=== PATIENT | female | born 1995 ===

== ENCOUNTER 2017-04-29 18:54 | Emergency (ER) | payer BC ==
[2017-04-29 19:06] VITALS: BMI 19.5
[2017-04-29] MEDS ORDERED: Sodium Chloride 0.9% 1,000 ML IV STA (19:56)
[2017-04-29] MEDS ORDERED: Sodium Chloride 0.9% 500 ML IV SCH (20:00)
[2017-04-29 20:07] LABS: URINE BILIRUBIN SMALL (NEGATIVE); URINE BLOOD SMALL (NEGATIVE); URINE GLUCOSE (UA) NEGATIVE (NEGATIVE); URINE KETONE TRACE mg/dL (NEGATIVE); URINE LEUKOCYTE ESTERASE NEGATIVE Leu/uL (NEGATIVE); URINE PROTEIN NEGATIVE mg/dL (<30 mg/dL)
--- NOTE | 2017-04-29 20:08 | ED PDOC ---
Arrival/HPI - General Historian: Patient, Parent EM Caveat: Acuity of Condition - History of Present Illness Front/Back of Body, Lg (Color): 1 - umbilical pain 2 - radiating to the back Time/Duration: Prior to Arrival, 1 hour Symptom Onset: Sudden Symptom Course: Intermittent Quality: Stabbing Severity Level: 10 Activities at Onset: Light Context: Standing <ALEXUS CASTELAN - Last Filed: 04/29/17 22:34> <Gerson Mcgowan - Last Filed: 04/29/17 22:43> - General Chief Complaint: Abdominal Pain Time Seen by Provider: 04/29/17 18:58 - History of Present Illness Narrative History of Present Illness (Text): 21 years old female with no significant PMh, presents for abdominal pain x 1 hr prior to arrival. Pt states that the pain is located around the umbilicus, started suddenly, describes it as sharp, stabbing, intermittent, rates it as 10/ 10, occurs every 15-20 mins, lasting a minute at a time. Pt has associated nausea, 1 episode of NB,nb vomit. Pt took 200 mg advil with minimal relief. Pt denies any fever, chills, dysuria, hematuria, frequency, diarrhea, melena, malodorous vaginal discharge, BRBPR. Pt has a history of constipation throughout life, mostly has a BM 3x/week, last BM this AM, nonbloody. Pt states that she is recently recovering from a common cold since this saturday, pt had sore throat, mild cough, nasal congestion, postnasal drip. Pt is taking otc theraflu for the symptoms, with good relief. PMD: Dr Sampson Dewitt [facility]: Mom and grandmother, kidney stones LMP: 04/27/17 04/29/17 19:57 (ALEXUS CASTELAN) Associated Symptoms (Text): + nausea and vomiting 04/29/17 20:09 (ALEXUS CASTELAN) Past Medical History - Provider Review Nursing Documentation Reviewed: Yes - Infectious Disease Hx of Infectious Diseases: None - Psychiatric Hx Substance Use: No - Anesthesia Hx Anesthesia: No <ALEXUS CASTELAN - Last Filed: 04/29/17 22:34> Family/Social History - Physician Review Nursing Documentation Reviewed: Yes Family/Social History: Other (Mother and grandmom, Kidney stones) Smoking Status: Never Smoked Hx Alcohol Use: No Hx Substance Use: No <ALEXUS CASTELAN - Last Filed: 04/29/17 22:34> Allergies/Home Meds <ALEXUS CASTELAN - Last Filed: 04/29/17 22:34> <Gerson Mcgowan - Last Filed: 04/29/17 22:43> Allergies/Adverse Reactions: Allergies No Known Allergies Allergy (Verified 04/29/17 19:05) Home Medications: Home Meds Medication Instructions Recorded Confirmed Norgestimate-Ethinyl Estradiol 1 tab PO DAILY 04/29/17 04/29/17 [Tri-Estarylla Tablet] Review of Systems - Physician Review All systems were reviewed & negative as marked: Yes - Review of Systems Constitutional: absent: Fevers Eyes: absent: Vision Changes, Eye Pain Respiratory: Cough, Sputum. absent: SOB, Wheezing Cardiovascular: absent: Chest Pain, Palpitations, Syncope Gastrointestinal: Abdominal Pain, Constipation, Nausea, Vomiting. absent: Stool Changes, Diarrhea Musculoskeletal: Back Pain. absent: Joint Swelling Skin: absent: Rash Neurological: absent: Headache, Dizziness Psychiatric: Anxiety <ALEXUS CASTELAN - Last Filed: 04/29/17 22:34> Physical Exam Vital Signs Reviewed: Yes Temperature: Afebrile Blood Pressure: Normal Pulse: Regular Respiratory Rate: Normal Appearance: Positive for: Uncomfortable Pain Distress: Mild Mental Status: Positive for: Alert and Oriented X 3 - Systems Exam Head: Present: Atraumatic, Normocephalic Pupils: Present: PERRL Extroacular Muscles: Present: EOMI Conjunctiva: Present: Normal Mouth: Present: Moist Mucous Membranes Pharnyx: Present: ERYTHEMA. No: Peritonsilar Swelling Respiratory/Chest: Present: Clear to Auscultation, Good Air Exchange. No: Accessory Muscle Use Cardiovascular: Present: Regular Rate and Rhythm, Normal S1, S2 Abdomen: Present: Tenderness, Normal Bowel Sounds, Guarding, McBurney's Point Tender. No: Peritoneal Signs, Rebound, Rovsing's Sign Present Genitourinary/Pelvic Exam: Present: Adenexal Tenderness (Right ), Cervical Motion Tendernes (Mild) Back: Present: Normal Inspection. No: CVA Tenderness Upper Extremity: Present: Normal Inspection. No: Edema Lower Extremity: Present: Normal Inspection, NORMAL PULSES. No: CALF TENDERNESS Neurological: Present: Speech Normal, Gait Normal Skin: Present: Warm, Dry. No: Rashes Psychiatric: Present: Alert, Oriented x 3, Anxious <ALEXUS CASTELAN - Last Filed: 04/29/17 22:34> Vital Signs Temp Pulse Resp BP Pulse Ox 04/29/17 19:07 97.7 F 95 H 18 107/75 100 Medical Decision Making <ALEXUS CASTELAN - Last Filed: 04/29/17 22:34> <Gerson Mcgowan - Last Filed: 04/29/17 22:43> ED Course and Treatment: 21 years old female presents for acute onset of abdominal pain: - Differentials include: appendicitis vs nephrolithiasis vs gastroenteritis vs colitis vs diverticulitis vs ovarian etiology vs ectopic vs UTI vs menstruation related pain - Obtain UA, test, CBC, CMP, lipase - CT abd/pelvis w/o contrast - Give Pepcid, zofran, toradol, IVF - F/u results. Reassess 04/29/17 20:15 04/29/17 20:18 test negative. will proceed with CT. 04/29/17 22:31 Ct abd/pelvis shows right sided free fluid within the pelvis. Pelvic exam done at bedside shows mild cervical motion tenderness and right sided adnexal tenderness. Will proceed with transvaginal US to better visualize the ovaries. (ALEXUS CASTELAN) 04/29/17 22:37 Patient was seen and examined with resident and plan discussed. Blood work was unremarkable. Urine showing blood but on menses. Has a family history of renal stones. CT a/p showing no stones but free fluid in the pelvis. Bimanual exam done (with Resident Alexus Castelan as [employer]) with R adnexal tenderness and mild CMT - findings are consistent with probably ruptured ovarian cyst but will also need to r/o ovarian torsion. Patient feels significantly better after initial meds but still in some pain; will give ultracet. Patient will be endorsed to Dr. Conrad, who will follow sono results. If no sono and findings are more consistent with a ruptured ovarian cyst, she will be d.c on nsaid and follow up with Dr. 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 (Gerson Mcgowan) - Lab Interpretations Lab Results: 04/29/17 20:00 04/29/17 20:00 Lab Results 04/29/17 20:00: Sodium 143, Potassium 3.9, Chloride 108 H, Carbon Dioxide 26, Anion Gap 13, BUN 13, Creatinine 0.6 L, Est GFR ( Amer) > 60, Est GFR ( Non-Af Amer) > 60, Random Glucose 109, Calcium 9.1, Total Bilirubin 0.4, AST 24 , ALT 28, Alkaline Phosphatase 56, Total Protein 6.9, Albumin 4.0, Globulin 2.9 , Albumin/Globulin Ratio 1.4, Lipase 57 04/29/17 20:00: WBC 8.3, RBC 3.93, Hgb 10.8 L, Hct 30.7 L, MCV 78.1 L, MCH 27.5 , MCHC 35.2, RDW 15.8 H, Plt Count 298, MPV 9.1, Gran % 76.1 H, Lymph % (Auto) 16.5 L, [place] % (Auto) 6.4 H, Eos % (Auto) 0.8 L, Baso % (Auto) 0.2, Gran # 6.29 , Lymph # 1.4, [place] # 0.5, Eos # 0.1, Baso # 0.02 04/29/17 19:45: Urine Color Yellow, Urine Appearance Sl cloudy, Urine pH 6.0, Ur Specific [place] 1.025, Urine Protein Negative, Urine Glucose (UA) Negative, Urine Ketones Trace H, Urine Blood Small H, Urine Nitrate Negative, Urine Bilirubin Small H, Urine Urobilinogen 1.0 H, Ur Leukocyte Esterase Negative, Urine RBC 20 - 25, Urine WBC 1 - 3, Ur Epithelial Cells 0 - 2, Urine Bacteria Mod - RAD Interpretation Narrative RAD Interpretations (Text): 04/29/17 22:24 Ct abd/pelvis: No obstructive uropathy. Free fluid within the right lower quadrant, within the right hemipelvis without definitive visualization of the appendix. Given the lack of intravenous contrast, examination is limited. Pelvic ultrasound may yield additional information, as well as providing source for the visualized free fluid. (ALEXUS CASTELAN) Radiology Orders: 04/29/17 19:49 ABD & PELVIS W/O PO OR IV CONT [CT] Stat 04/29/17 22:20 TRANSVAGINAL [US] Stat - Medication Orders Current Medication Orders: Discontinued Medications Famotidine (Pepcid) 20 mg IVP STAT STA Stop: 04/29/17 19:57 Last Admin: 04/29/17 20:03 Dose: 20 mg IVP Administration Document 04/29/17 20:03 SE (Rec: 04/29/17 20:03 SE [id number]) Charges for Administration # of IVP Administrations 1 Sodium Chloride (Sodium Chloride 0.9%) 1,000 mls @ 999 mls/hr IV .Q1H1M STA Stop: 04/29/17 20:56 Last Admin: 04/29/17 20:03 Dose: 999 mls/hr eMAR Start Stop Document 04/29/17 20:03 SE (Rec: 04/29/17 20:03 SE [id number]) Intravenous Solution Start Date 04/29/17 Start Time 20:03 Ketorolac Tromethamine (Toradol) 30 mg IVP STAT STA Stop: 04/29/17 19:58 Last Admin: 04/29/17 20:03 Dose: 30 mg MAR Pain Assessment Document 04/29/17 20:03 SE (Rec: 04/29/17 20:03 SE [id number]) Pain Reassessment Is this a pain reassessment? No Sleep Is patient sleeping during reassessment? No Presence of Pain Presence of Pain Yes Pain Scale Used Pain Scale Used Numeric IVP Administration Document 04/29/17 20:03 SE (Rec: 04/29/17 20:03 SE [id number]) Charges for Administration # of IVP Administrations 1 Ondansetron HCl (Zofran Inj) 4 mg IVP STAT STA Stop: 04/29/17 19:57 Last Admin: 04/29/17 20:03 Dose: 4 mg IVP Administration Document 04/29/17 20:03 SE (Rec: 04/29/17 20:03 SE [id number]) Charges for Administration # of IVP Administrations 1 - PA / CERTIFIED MEDICAL CODER / Resident Statement / has reviewed & agrees with the documentation as recorded. / has examined the patient and agrees with the treatment plan. <Gerson Mcgowan - Last Filed: 04/29/17 22:43> Disposition/Present on Arrival - Present on Arrival Any Indicators Present on Arrival: No History of DVT/PE: No History of Uncontrolled Diabetes: No Urinary Catheter: No History of Decub. Ulcer: No History Surgical Site Infection Following: None - Disposition Have Diagnosis and Disposition been Completed?: No Disposition Time: 23:00 <ALEXUS CASTELAN - Last Filed: 04/29/17 22:34> <Gerson Mcgowan - Last Filed: 04/29/17 22:43> - Disposition Diagnosis: Abdominal pain Patient Problems: Current Active Problems Problem Status Onset Abdominal pain Acute Condition: IMPROVED Discharge Instructions (ExitCare): Ovarian Cyst (ED) Referrals: Sampson Dewitt MD [Primary Care Provider] - Follow up with primary Satinder Schroeder MD [Staff Provider] - Follow up with primary Forms: [facility] (Latvian)
[2017-04-29 20:17] LABS: ALB/GLOB RATIO 1.4 (1.1-1.8); ALKALINE PHOSPHATASE 56 U/L (38-126); ALT/SGPT 28 U/L (7-56); AST/SGOT 24 U/L (14-36); BILIRUBIN,TOTAL 0.4 mg/dL (0.2-1.3); BLOOD UREA NITROGEN 13 mg/dL (7-21); CALCIUM 9.1 mg/dL (8.4-10.5); CARBON DIOXIDE 26 mmol/L (21-33); CHLORIDE 108 mmol/L (98-107); GFR AFRICAN-AMERICAN > 60; GLUCOSE,RANDOM 109 mg/dL (70-110); LIPASE 57 U/L (23-300); POTASSIUM 3.9 mmol/L (3.6-5.0); SODIUM 143 mmol/L (132-148); TOTAL PROTEIN 6.9 g/dL (5.8-8.3)
[2017-04-29 20:23] LABS: BASO # 0.02 K/mm3 (0.0-2.0); BASO % 0.2 % (0.0-3.0); EOS # 0.1 (0.0-0.7); EOS % 0.8 % (1.5-5.0); GRAN # 6.29 (1.4-6.5); GRAN % 76.1 % (50.0-68.0); HEMATOCRIT 30.7 % (36.0-48.0); LYMPH # 1.4 (1.2-3.4); LYMPH % 16.5 % (22.0-35.0); MEAN CELL VOLUME 78.1 fl (80.0-105.0); MEAN CORPUSCULAR HEMOGLOBIN 27.5 pg (25.0-35.0); MEAN CORPUSCULAR HGB CONC 35.2 g/dl (31.0-37.0); MEAN PLATELET VOLUME 9.1 fl (7.0-11.0); MONO # 0.5 (0.1-0.6); MONO % 6.4 % (1.0-6.0); RED CELL DISTRIBUTION WIDTH 15.8 % (11.5-14.5); WHITE BLOOD COUNT 8.3 10^3/ul (4.5-11.0)
[2017-04-29 20:29] LABS: URINE APPEARANCE SL CLOUDY (CLEAR); URINE COLOR YELLOW (YELLOW)
[2017-04-29 20:49] LABS: URINE BACTERIA MOD (NEG); URINE EPITHELIAL CELLS 0 - 2 /hpf (0-5); URINE RBC 20 - 25 /hpf (0-2)
--- NOTE | 2017-04-29 22:12 | CT ---
EXAM: CT Abdomen and Pelvis Without Intravenous Contrast CLINICAL HISTORY: 21 years old, female; Pain; Abdominal pain; Flank; Right; Additional info: Abdominal/flank pain; R/O appendicitis, renal sto TECHNIQUE: Axial computed tomography images of the abdomen and pelvis without intravenous contrast. All CT scans at this facility use one or more dose reduction techniques, viz.: automated exposure control; ma/kV adjustment per patient size (including targeted exams where dose is matched to indication; i.e. head); or iterative reconstruction technique. Coronal and sagittal reformatted images were created and reviewed. COMPARISON: No relevant prior studies available. FINDINGS: Lower thorax: The bilateral lung bases are clear. ABDOMEN: Liver: No acute findings Gallbladder and bile ducts: No acute finding. No calcified stones. No intra-extrahepatic biliary ductal dilation. Pancreas: Limited evaluation secondary to the lack of intravenous contrast. Spleen: No acute findings. Adrenals: No acute findings. Kidneys and ureters: No obstructing stones. No hydronephrosis. PELVIS: Bladder: The bladder is decompressed, limiting its evaluation. Reproductive: The uterus is anteverted and anteflexed, and extends to the right of midline. The patient is currently menstruating. Appendix: The appendix is not definitively visualized, however no significant pericecal inflammatory change is identified to suggest the presence of acute appendicitis. There is, however, free fluid within the right lower quadrant, within the right hemipelvis. ABDOMEN and PELVIS: Stomach and bowel: No acute findings. Peritoneum: As above. Lymph nodes: Limited evaluation without intravenous contrast. Vasculature: Unremarkable. Bones: No acute fracture. IMPRESSION: No obstructive uropathy. Free fluid within the right lower quadrant, within the right hemipelvis without definitive visualization of the appendix. Given the lack of intravenous contrast, examination is limited. Pelvic ultrasound may yield additional information, as well as providing source for the visualized free fluid.
[2017-04-29] MEDS ORDERED: TraMADol/Apap 37.5/325 mg Tab PO STA (22:36)
--- NOTE | 2017-04-29 22:48 | ED PDOC ---
Physical Exam Vital Signs Reviewed: Yes Vital Signs Temp Pulse Resp BP Pulse Ox 04/29/17 23:30 98.3 F 87 16 122/63 99 04/29/17 19:07 97.7 F 95 H 18 107/75 100 Temperature: Afebrile Blood Pressure: Normal Pulse: Regular Respiratory Rate: Normal Appearance: Positive for: Well-Appearing, Non-Toxic, Comfortable Pain Distress: None Mental Status: Positive for: Alert and Oriented X 3 Medical Decision Making ED Course and Treatment: 04/29/17 22:45 Case endorsed to me by Dr. Mcgowan. 21 year old female presented complaining of abdominal pain. Blood work unremarkable, CT showing free fluids in the pelvis. Pt awaiting US, r/o ovarian torsion, diagnosis at this time likely ruptured ovarian cyst. Pt felt better with Toradol, but still reports some pain. Will await sono results and re-assess. 04/29/17 23:29 Pt states she does not want to wait for the ultrasound and wants to go home. Pt will sign out against medical advice. Leaving Against Medical Advice (AMA): The patient is choosing to leave against medical advice. I have personally explained to the patient that choosing to do so may result in permanent bodily harm or . I have discussed at great length that without further evaluation and monitoring there may be unforeseen circumstances and/or deterioration causing permanent bodily harm or as a result of their choice. The patient is alert, oriented, and shows the mental capacity to make clear decisions regarding the patients health care at this time. The patient continues to wish to leave against medical advice. In light of the patients decision to leave against medical advice, patient is aware of the importance to following up as instructed. The patient has been advised that they should return to the emergency room immediately if they change their mind at any time, or if their condition begins to change or worsen in any way. - Lab Interpretations Lab Results: 04/29/17 20:00 04/29/17 20:00 Lab Results 04/29/17 20:00: Sodium 143, Potassium 3.9, Chloride 108 H, Carbon Dioxide 26, Anion Gap 13, BUN 13, Creatinine 0.6 L, Est GFR ( Amer) > 60, Est GFR ( Non-Af Amer) > 60, Random Glucose 109, Calcium 9.1, Total Bilirubin 0.4, AST 24 , ALT 28, Alkaline Phosphatase 56, Total Protein 6.9, Albumin 4.0, Globulin 2.9 , Albumin/Globulin Ratio 1.4, Lipase 57 04/29/17 20:00: WBC 8.3, RBC 3.93, Hgb 10.8 L, Hct 30.7 L, MCV 78.1 L, MCH 27.5 , MCHC 35.2, RDW 15.8 H, Plt Count 298, MPV 9.1, Gran % 76.1 H, Lymph % (Auto) 16.5 L, [place] % (Auto) 6.4 H, Eos % (Auto) 0.8 L, Baso % (Auto) 0.2, Gran # 6.29 , Lymph # 1.4, [place] # 0.5, Eos # 0.1, Baso # 0.02 04/29/17 19:45: Urine Color Yellow, Urine Appearance Sl cloudy, Urine pH 6.0, Ur Specific [place] 1.025, Urine Protein Negative, Urine Glucose (UA) Negative, Urine Ketones Trace H, Urine Blood Small H, Urine Nitrate Negative, Urine Bilirubin Small H, Urine Urobilinogen 1.0 H, Ur Leukocyte Esterase Negative, Urine RBC 20 - 25, Urine WBC 1 - 3, Ur Epithelial Cells 0 - 2, Urine Bacteria Mod - RAD Interpretation Radiology Orders: 04/29/17 19:49 ABD & PELVIS W/O PO OR IV CONT [CT] Stat 04/29/17 22:20 TRANSVAGINAL [US] Stat - Medication Orders Current Medication Orders: Discontinued Medications Famotidine (Pepcid) 20 mg IVP STAT STA Stop: 04/29/17 19:57 Last Admin: 04/29/17 20:03 Dose: 20 mg IVP Administration Document 04/29/17 20:03 SE (Rec: 04/29/17 20:03 [id number]) Charges for Administration # of IVP Administrations 1 Sodium Chloride (Sodium Chloride 0.9%) 1,000 mls @ 999 mls/hr IV .Q1H1M STA Stop: 04/29/17 20:56 Last Admin: 04/29/17 20:03 Dose: 999 mls/hr eMAR Start Stop Document 04/29/17 20:03 SE (Rec: 04/29/17 20:03 [id number]) Intravenous Solution Start Date 04/29/17 Start Time 20:03 Ketorolac Tromethamine (Toradol) 30 mg IVP STAT STA Stop: 04/29/17 19:58 Last Admin: 04/29/17 20:03 Dose: 30 mg MAR Pain Assessment Document 04/29/17 20:03 SE (Rec: 04/29/17 20:03 SE [id number]) Pain Reassessment Is this a pain reassessment? No Sleep Is patient sleeping during reassessment? No Presence of Pain Presence of Pain Yes Pain Scale Used Pain Scale Used Numeric IVP Administration Document 04/29/17 20:03 SE (Rec: 04/29/17 20:03 SE [id number]) Charges for Administration # of IVP Administrations 1 Ondansetron HCl (Zofran Inj) 4 mg IVP STAT STA Stop: 04/29/17 19:57 Last Admin: 04/29/17 20:03 Dose: 4 mg IVP Administration Document 04/29/17 20:03 SE (Rec: 04/29/17 20:03 SE [id number]) Charges for Administration # of IVP Administrations 1 Tramadol/Acetaminophen (Ultracet 37.5/325 Mg) 2 tab PO STAT STA Stop: 04/29/17 22:37 Last Admin: 04/29/17 22:57 Dose: 2 tab MAR Pain Assessment Document 04/29/17 22:57 EQ (Rec: 04/29/17 22:57 EQ [id number]) Pain Reassessment Is this a pain reassessment? No Sleep Is patient sleeping during reassessment? No Presence of Pain Presence of Pain Yes Pain Scale Used Pain Scale Used Numeric Location Left, Right or Bilateral Left Upper or Lower Upper Description Description Constant Disposition/Present on Arrival - Present on Arrival Any Indicators Present on Arrival: No History of DVT/PE: No History of Uncontrolled Diabetes: No Urinary Catheter: No History of Decub. Ulcer: No History Surgical Site Infection Following: None - Disposition Have Diagnosis and Disposition been Completed?: Yes Diagnosis: Abdominal pain Disposition: AGAINST MEDICAL ADVICE Disposition Time: 23:30 Condition: UNKNOWN Discharge Instructions (ExitCare): Ovarian Cyst (ED) Prescriptions: Cephalexin [Keflex] 500 mg PO BID #14 capsule Referrals: Sampson Dewitt MD [Primary Care Provider] - Follow up with primary Satinder Schroeder MD [Staff Provider] - Follow up with primary Forms: [facility] ([place])
[2017-04-29 23:31] VITALS: BP 122/63; PULSE 87; TEMP 98.3; O2SAT 99
[2017-04-29 23:59] VITALS: RESP 20
== END 2017-04-30 00:02 | disposition left against medical advice (07) ==
LOC: ED 18:54
DX: R10.9 Unspecified abdominal pain (principal)
CPT/HCPCS: 74176; 80053; 81001; 83690; 85025; 87491; 87591; 96374; 96375; 99285; J1885; J2405; J7040

== ENCOUNTER 2018-05-01 21:03 | Emergency (ER) | payer BC, OTHER ==
[2018-05-01 21:43] VITALS: BMI 20.3
[2018-05-01 22:06] VITALS: RESP 18; TEMP 98.3
--- NOTE | 2018-05-01 22:41 | ED PDOC ---
Arrival/HPI - General Chief Complaint: Shortness Of Breath Time Seen by Provider: 05/01/18 22:05 Historian: Patient - History of Present Illness Narrative History of Present Illness (Text): 05/01/18 22:43 22 year old female, with a past medical history of iron deficient anemia, presents to the emergency with dizziness, intermittently since yesterday. Patient informs of associated shortness of breath and chest tightness. Patient states both instances of dizziness occurred while walking. Patient states most recent incident happened about an hour ago. Patient states she has not taken her anemia medication in about 2 weeks. Patient informs being on OCP for a year and half. Patient states she saw her PMD yesterday, and had a normal EKG. Patient denies any fever, cough, chest pain, headache, leg pain, recent travel or any other complaints. PMD [place] Symptom Onset: Gradual Symptom Course: Unchanged Activities at Onset: Light Past Medical History - Provider Review Nursing Documentation Reviewed: Yes - Infectious Disease Hx of Infectious Diseases: None - Psychiatric Hx Substance Use: No - Anesthesia Hx Anesthesia: No Family/Social History - Physician Review Nursing Documentation Reviewed: Yes Family/Social History: No Known Family HX Smoking Status: Never Smoked Hx Alcohol Use: No Hx Substance Use: No Allergies/Home Meds Allergies/Adverse Reactions: Allergies No Known Allergies Allergy (Verified 05/01/18 22:09) Home Medications: Home Meds Medication Instructions Recorded Confirmed Norgestimate-Ethinyl Estradiol 1 tab PO DAILY 04/29/17 04/29/17 [Tri-Estarylla Tablet] Review of Systems - Physician Review All systems were reviewed & negative as marked: Yes - Review of Systems Constitutional: absent: Fevers Respiratory: SOB. absent: Cough Cardiovascular: absent: Chest Pain Musculoskeletal: absent: Arthralgias (no leg pain) Neurological: Dizziness. absent: Headache Physical Exam Vital Signs Reviewed: Yes Vital Signs Temp Pulse Resp BP Pulse Ox 05/01/18 21:59 98.3 F 96 H 18 124/76 100 Temperature: Afebrile Blood Pressure: Normal Pulse: Tachycardic Respiratory Rate: Normal Appearance: Positive for: Well-Appearing, Non-Toxic, Comfortable Pain Distress: None Mental Status: Positive for: Alert and Oriented X 3 - Systems Exam Head: Present: Atraumatic, Normocephalic Pupils: Present: PERRL Extroacular Muscles: Present: EOMI Conjunctiva: Present: Normal Mouth: Present: Moist Mucous Membranes Neck: Present: Normal Range of Motion Respiratory/Chest: Present: Clear to Auscultation, Good Air Exchange. No: Respiratory Distress, Accessory Muscle Use Cardiovascular: Present: Normal S1, S2, Tachycardic. No: Murmurs Abdomen: No: Tenderness, Distention, Peritoneal Signs Back: Present: Normal Inspection Upper Extremity: Present: Normal Inspection. No: Cyanosis, Edema Lower Extremity: Present: Normal Inspection. No: Edema Neurological: Present: GCS=15, CN II-XII Intact, Speech Normal Skin: Present: Warm, Dry, Normal Color. No: Rashes Psychiatric: Present: Alert, Oriented x 3, Normal Insight, Normal Concentration Medical Decision Making ED Course and Treatment: 05/01/18 22:52 Impression: 22 year old female presents with dizziness and shortness of breath Plan: -- EKG -- Labs -- Chest X-ray -- O2 nasal -- Reassess and disposition Prior Visits: Notes and results from previous visits were reviewed. Progress Notes: EKG : NSR at 71 bpm, (-) acute ST changes, as read by FIDELIA. CXR : NAD, as read by FIDELIA Labs : Uhcg (-), hgb 11, d-dimer (-), trop (-) On reevaluation, patient reports improvement of symptoms, denies any dizziness, CP, SOB, abd pain or nausea. On exam, patient remains awake alert and oriented 3 in no acute distress. Repeat neuro exam shows no focal findings. Patient ambulatory in the ER with a steady gait. VS P 91 BP 126/79 R 18 O2sat 100%RA. Based on history, exam and diagnostic results plan will be for outpatient follow up. Advised to follow up with primary care physician in 1-2 days without fail. Return to the emergency room at any time for any new or worsening symptoms. Patient states she fully agrees with and understands discharge instructions. States that she agrees with the plan and disposition. Verbalized and repeated discharge instructions and plan. I have given the patient opportunity to ask any additional questions. - RAD Interpretation Radiology Orders: 05/01/18 22:31 CHEST PORTABLE [RAD] Stat - PA / HELP DESK SUPPORT SPECIALIST / Resident Statement MD/DO has reviewed & agrees with the documentation as recorded. - Scribe Statement The provider has reviewed the documentation as recorded by the Scribe Peter Ayush Provider Scribe Attestation: All medical record entries made by the Yamilethibe were at my direction and personally dictated by me. I have reviewed the chart and agree that the record accurately reflects my personal performance of the history, physical exam, medical decision making, and the department course for this patient. I have also personally directed, reviewed, and agree with the discharge instructions and disposition. Disposition/Present on Arrival - Present on Arrival Any Indicators Present on Arrival: No History of DVT/PE: No History of Uncontrolled Diabetes: No Urinary Catheter: No History of Decub. Ulcer: No History Surgical Site Infection Following: None - Disposition Have Diagnosis and Disposition been Completed?: Yes Diagnosis: Dizziness, SOB (shortness of breath) Disposition: HOME/ ROUTINE Disposition Time: 00:45 Patient Plan: Discharge Condition: STABLE Discharge Instructions (ExitCare): Shortness of Breath (Dyspnea) (DC), Dizziness, Nonvertigo, (DC) Additional Instructions: Thank you for letting us take care of you today. You were treated for dizziness, SOB, possible anxiety. The emergency medical care you received today was directed at your acute symptoms. Return to the Emergency Department if your symptoms worsen, do not improve, or if you have any other problems. Please contact your doctor in 2 days for re-evaluation and follow up. Bring any paperwork you were given at discharge with you along with any medications you are taking to your follow up visit. Our treatment cannot replace ongoing medical care by a primary care provider (PCP) outside of the emergency department. Thank you for allowing the [facility] team to be part of your care today. If you had an X-Ray : A Radiologist will review the ED reading if any change in treatment is needed we will contact you. Forms: [email or web address] (Welsh), WORK NOTE
[2018-05-01 22:56] LABS: BASO # 0.02 K/mm3 (0.0-2.0); BASO % 0.3 % (0.0-3.0); EOS # 0.1 (0.0-0.7); EOS % 0.8 % (1.5-5.0); GRAN # 3.25 (1.4-6.5); GRAN % 49.9 % (50.0-68.0); HEMOGLOBIN 11.3 g/dL (12.0-16.0); LYMPH # 2.8 (1.2-3.4); LYMPH % 42.4 % (22.0-35.0); MEAN CELL VOLUME 79.2 fl (80.0-105.0); MEAN CORPUSCULAR HEMOGLOBIN 27.6 pg (25.0-35.0); MEAN CORPUSCULAR HGB CONC 34.9 g/dl (31.0-37.0); MEAN PLATELET VOLUME 9.1 fl (7.0-11.0); MONO # 0.4 (0.1-0.6); MONO % 6.6 % (1.0-6.0); RBC 4.09 10^6/uL (3.5-6.1); RED CELL DISTRIBUTION WIDTH 14.6 % (11.5-14.5); WHITE BLOOD COUNT 6.5 10^3/uL (4.5-11.0)
[2018-05-01 23:00] LABS: INR 0.94; PARTIAL THROMBOPLASTIN TIME 28.2 Seconds (25.1-36.5); PROTHROMBIN TIME 10.7 SECONDS (9.4-12.5)
[2018-05-01 23:03] LABS: D DIMER < 200 ng/mlDDU (0-243)
[2018-05-01] MEDS ORDERED: Sodium Chloride 0.9% 1,000 ML IV STA (23:09)
[2018-05-01 23:17] LABS: ALB/GLOB RATIO 1.3 (1.1-1.8); ALT/SGPT 16 U/L (7-56); AST/SGOT 38 U/L (14-36); BLOOD UREA NITROGEN 15 mg/dL (7-21); GFR NON-AFRICAN AMERICAN > 60
[2018-05-01 23:28] LABS: TROPONIN I < 0.01 ng/mL
[2018-05-02 00:30] VITALS: BP 126/79; PULSE 91
[2018-05-02 00:58] VITALS: O2SAT 99
--- NOTE | 2018-05-02 09:05 | RAD ---
Date of service: 05/01/2018 HISTORY: SOB COMPARISON: No prior. FINDINGS: LUNGS: No active pulmonary disease. PLEURA: No significant pleural effusion identified, no pneumothorax apparent. CARDIOVASCULAR: No aortic atherosclerotic calcification present. Normal cardiac size. No pulmonary vascular congestion. OSSEOUS STRUCTURES: No significant abnormalities. VISUALIZED UPPER ABDOMEN: Normal. OTHER FINDINGS: None. IMPRESSION: No active disease.
--- NOTE | 2018-05-02 12:54 | CARD ---
APPROVED REPORT Date of service: 05/01/2018 EKG Measurement Heart [id number] <Conclusion> Sinus tachycardia Otherwise normal ECG
== END 2018-05-02 00:57 | disposition home or self-care (01) ==
LOC: ED 21:03
DX: R42 Dizziness and giddiness (principal); R06.02 Shortness of breath
CPT/HCPCS: 71045; 80053; 82550; 83615; 83735; 84484; 85025; 85378; 85610; 85730; 93005; 96360; 99284; J7030